=== PATIENT | female | born 1990 | race Caucasian/White ===

== ENCOUNTER 2021-04-22 11:50 | Inpatient (IN) | payer BC, SELFPAY ==
[2021-04-22] VITALS (80 sets, daily range): BP systolic 94–134; BP diastolic 47–106; PULSE 31–107; RESP 16; TEMP 37; O2SAT 71–100; BMI 25.7
--- NOTE | 2021-04-22 12:38 | WPDOBADMIT ---
Obstetrics - Admit Note Admission Note: record reviewed. Additions to the history and/or subsequent changes in the physical findings follow. 30 y/o at 39 1/7 weeks gestation here for induction of labor. GBS neg. AVSS NST reactive TOCO: irregular contractions ABD soft, nontender, gravid, vertex EXT nontender Cervix 50/-2. Vertex. AROM with clear fluid. A: IUP at term with favorable cervix, desiring induction of labor. P: Oxytocin. Anticipate .
[2021-04-22] MEDS: LACTATED RINGERS 1,000 ML 125 ML IV CONT (12:45)
[2021-04-22 13:01] LABS: Basophils Absolute Auto 0.1 K/mm3 (0.0-0.1); Basophils Percent Auto 0.5 % (0.2-1.2); Eosinophils Percent Auto 0.4 % (0-4.4); Hematocrit 32.1 % (37.0-47.0); Hemoglobin 10.5 g/dL (12.0-15.0); Immature Granulocyte Absolute 0.07 K/mm3 (0.00-0.031); Immature Granulocyte Percent A 0.7 % (0-0.5); Lymphocytes Absolute Auto 2.16 K/mm3 (0.9-3.2); Lymphocytes Percent Auto 21.7 % (18.3-44.2); Mean Corpuscular HGB Conc 32.7 g/dl (32-36); Mean Corpuscular Hemoglobin 28.5 pg (26-34); Mean Platelet Volume 10.2 fl (7.4-10.4); Monocytes Absolute Auto 0.7 K/mm3 (0.1-0.6); Neutrophils Percent Auto 69.7 % (45.5-73.1); Platelet Count Result 308 k/mm3 (150-375); Red Blood Count 3.69 M/mm3 (4.2-5.4); Red Cell Distribution Width 13.6 % (11.5-14.5)
[2021-04-22] MEDS: OXYTOCIN 30 UNITS/NS 500 ML 30 UNITS/500 ML BAG IV CONT (13:08)
--- NOTE | 2021-04-22 13:11 | LDADM ---
This patient, Blessing Burnette, was admitted to Labor/Delivery/Recovery 107 on 04/22/21 at 11:50. Plans for labor, pain management and were discussed with patient. Patient/family oriented to hospital policies and general routines including ID bracelet, bed and alarms, visiting hours, pain management, procedures, bathroom and other care routines, personal items, smoking policy, room service/diet and guest tray routines, security routines, and visiting hours. Patient/Family are encouraged to report perceived risks to care and to ask questions if they do not understand what they are told or what they should do. See OBIX for further documentation.
--- NOTE | 2021-04-22 14:12 | P.PNAN_ITS ---
Anes - Initial Pre Proc Eval Procedure: labor epidural Date/Time: 04/22/21 14:12 Surgeon: Constantino Mortensen MD Pre Op Diagnosis: labor pain Pre Op Diagnosis: iol Patient Data Age: 30 Gender: F Height: 1.68 m Weight: 72.5 kg Last Vital Signs Pulse 85 04/22/21 14:09 BP 116/80 04/22/21 14:09 Pulse Ox 100 04/22/21 14:10 Allergies Allergy/AdvReac Type Severity Reaction Status Date / Time No Known Allergies Allergy Verified 09/18/19 11:42 Home Medications Medication Instructions Recorded Confirmed Type PNV cmb#95-ferrous fumarate-FA 1 tablet PO DAILY 09/18/19 04/22/21 History [] Laboratory Tests 04/22/21 04/22/21 04/22/21 12:41 12:41 12:41 WBC 10.0 K/mm3 K/mm3 (4.5-10.0) RBC 3.69 M/mm3 L M/mm3 (4.2-5.4) Hgb 10.5 g/dL L g/dL (12.0-15.0) Hct 32.1 % L % (37.0-47.0) MCV 87.0 fl fl (80-100) MCH 28.5 pg pg (26-34) MCHC 32.7 g/dl g/dl (32-36) RDW 13.6 % % (11.5-14.5) Plt Count 308 k/mm3 k/mm3 (150-375) MPV 10.2 fl fl (7.4-10.4) Immature Gran % (Auto) 0.7 % H % (0-0.5) Neut % (Auto) 69.7 % % (45.5-73.1) Lymph % (Auto) 21.7 % % (18.3-44.2) [place] % (Auto) 7.0 % % (2.6-8.5) Eos % (Auto) 0.4 % % (0-4.4) Baso % (Auto) 0.5 % % (0.2-1.2) Lymph # (Auto) 2.16 K/mm3 K/mm3 (0.9-3.2) [place] # (Auto) 0.7 K/mm3 H K/mm3 (0.1-0.6) Eos # (Auto) 0.0 K/mm3 K/mm3 (0-0.3) Baso # (Auto) 0.1 K/mm3 K/mm3 (0.0-0.1) Abs Immat Gran (auto) 0.07 K/mm3 H K/mm3 (0.00-0.031) Absolute Neuts (auto) 7.0 K/mm3 H K/mm3 (1.3-6.7) Absolute Nucleated RBC 0.0 K/mm3 K/mm3 (0.0-0.012) Nucleated RBC % 0.0 % % (0.0-0.2) RPR Pending Blood Type A Positive Antibody Screen Negative Patient hx anesthesia problems: none Family hx anesthesia problems: none PMFSH Family History Family History Other Unknown family medical history Social History Social History Smoking status: Never smoker Second hand tobacco smoke exposure: No Substance use: never Gender identity (if verbalized by the patient): Female Spiritual care concerns: No Anes - Eval Final PreProcedure Day of Procedure 04/22/21 14:12 Patient weight: overweight ASA classification: II Anesthesia type and monitoring: regional epidural and standard monitoring Informed Consent: The patient's anesthetic plan and its attendant risks and benefits were discussed with the patient/family/POA. Questions were solicited and answers provided to the satisfaction of the patient/family/POA.
[2021-04-22] MEDS: OXYTOCIN 30 UNITS/NS 500 ML 30 UNITS/500 ML BAG 125 UNITS IV CONT (17:13)
[2021-04-22] MEDS: IBUPROFEN 600 MG TABLET PO (19:12)
[2021-04-22] MEDS: WITCH HAZEL 40 PADS 1 PAD TOPICAL (19:13)
[2021-04-22] MEDS: BENZOCAINE 20% AER SPR (*SP) 56 GM CAN 1 SPRAY TOPICAL (19:13)
--- NOTE | 2021-04-22 19:20 | PM.OBPRVD ---
OB - Delivery Note Procedure Delivery date: 04/22/21 Procedure: Induction of labor with Induction method: per pitocin protocol Delivery augmentation: rupture of membranes and pitocin Delivery monitor: external FHT and external uterine Route of delivery: Laceration Description: Perineal - 1st Degree Delivery repair: vicryl (3-0) Specimen: Yes (cord blood) Quantitative Blood Loss (ml): 120 Anesthesia type: Epidural Disposition: PACU Complications: None Narrative: 30 y/o at 39 1/7 weeks gestation who presented to the hospital for induction of labor. Oxytocin was administered intravenously. Amniotomy was performed with return of clear fluid. She received an epidural for pain control. Her labor progressed and her cervix dilated completely. She pushed with good effort and delivered the 's head to the perineum, followed by the body. The nose and mouth were bulb suctioned. After a delay, the cord was clamped and cut. The was handed off the field. Cord blood was collected. The placenta delivered spontaneously and was grossly normal in appearance. The usual 3 vessel cord was noted. A first degree midline perineal laceration was sustained. This was reapproximated using 3 0 Vicryl in the usual layered fashion. Excellent hemostasis resulted as did excellent reapproximation of the normal anatomy. Needle and instrument counts were correct. The patient was taken to recovery room in stable condition. The infant went to the nursery in stable condition. I was present and scrubbed for the entire delivery. Baby Date of : 04/22/21 Time of : 16:39 Weeks of gestation at delivery: 39 gender: Female Weight (pounds): 7 Weight (ounces): 6 presentation: vertex position: Left Occiput Anterior Placenta delivery description: Spontaneous and Normal Configuration cord vessel description: 3 Vessels and Delayed Cord Clamping score one minute: 9 score five minutes: 9
--- NOTE | 2021-04-22 19:32 | PM.OBDSVD ---
DS: Admitting Diagnosis Admitting Diagnosis Admitting Diagnosis: IUP at 39 1/7 weeks Favorable cervix DS: Discharge Diagnosis Discharge Diagnosis (1) (normal spontaneous vaginal delivery): Code(s): O80 - Encounter for full-term uncomplicated delivery Status: Acute (2) Term : Code(s): Z34.90 - Encounter for supervision of normal , unspecified, unspecified trimester Status: Acute OB - DS: Summary OB Procedures : None OB Procedures Intrapartum: Spontaneous Vag Delivery OB Procedures: : None DS: Data Data Completed and Pending Labs on day of discharge: Labs from last 24 hours 04/22/21 04/22/21 04/22/21 12:41 12:41 12:41 WBC 10.0 RBC 3.69 L Hgb 10.5 L Hct 32.1 L MCV 87.0 MCH 28.5 MCHC 32.7 RDW 13.6 Plt Count 308 MPV 10.2 Immature Gran % (Auto) 0.7 H Neut % (Auto) 69.7 Lymph % (Auto) 21.7 [place] % (Auto) 7.0 Eos % (Auto) 0.4 Baso % (Auto) 0.5 Lymph # (Auto) 2.16 [place] # (Auto) 0.7 H Eos # (Auto) 0.0 Baso # (Auto) 0.1 Abs Immat Gran (auto) 0.07 H Absolute Neuts (auto) 7.0 H Absolute Nucleated RBC 0.0 Nucleated RBC % 0.0 RPR Pending Blood Type A Positive Antibody Screen Negative Discharge Plan Discharge Attending physician on discharge: Constantino Mortensen Consulting providers: Brenton Whalen Discharging Clinician: Constantino Mortensen Patient Disposition: Home, Self-Care Activity: pelvic rest Diet: regular Discharge Instructions: Education: Mom and Baby Guide Given to: Mother Follow-Up: Call your delivering provider's office for an appointment to be seen in: 6 Weeks Mom and baby should come to the [facility] for the follow-up appointment. Appointment Date/Time: Sunday, April 25, 2021 at 10:00 a.m. What to expect at your follow-up visit: Blood Pressure Check Physical Assessment Call [phone] if you are unable to keep your appointment time. BREAST CARE: * Wear a snug supportive bra. * For engorgement discomfort: Breast Feeding: * Apply warm moist washcloths * Express milk as needed to relieve engorgement * Wear loose clothing * For sore nipples: * Identify correct latch-on * Apply warm moist washcloths before and after nursing * Air dry nipples after nursing * May apply Lansinoh cream to nipples EPISIOTOMY/PERINEAL CARE: * Until bleeding stops, use your frankie bottle after urinating * Change your pad frequently throughout the day * You may take sitz baths several times a day (fill your bathtub with warm water and soak for 20 minutes.) Do NOT bathe in the water * No tub baths until seen by your physician - You may shower ACTIVITY: * Rest as much as possible. * Do not exercise or lift anything heavier than your baby (such as laundry or other children.) * Avoid stairs or driving as much as possible. * Do not put anything into the vagina. No douching, tampons, or sexual activity until seen by physician. NOTIFY PHYSICIAN IF YOU HAVE ANY QUESTIONS OR IF ANY OF THE FOLLOWING SYMPTOMS OCCUR: * If your perineum becomes red, swollen, or more painful than what you have experienced in the hospital. * If your vaginal bleeding becomes foul smelling. * If your vaginal bleeding becomes more heavy than a period or if your bleeding changes from pink to bright red. However, you may pass an occasional walnut-sized clot once or twice for the first week . * If you experience a sharp, shooting pain in you calves. * If you discover a hard, reddened area on your breast or if you experience flu-like symptoms. DIET: * Eat regular, well-balanced meals. * Drink plenty of fluids daily. If , drink to thirst. Call or return if temperature above 100.4? F, increased abdominal pain, increased vaginal bleeding or any new
[2021-04-22] MEDS: ACETAMINOPHEN 325 MG TABLET 650 MG PO (21:45)
[2021-04-23] MEDS: IBUPROFEN 600 MG TABLET PO ×4 (01:00→23:58)
[2021-04-23] MEDS: ACETAMINOPHEN 325 MG TABLET 650 MG PO ×4 (03:56→23:59)
[2021-04-23 04:46] VITALS: BP 98/65; PULSE 79; RESP 16; TEMP 36.1; O2SAT 98
[2021-04-23 05:09] LABS: Hematocrit 27.6 % (37.0-47.0); Hemoglobin 9.2 g/dL (12.0-15.0)
[2021-04-23 08:17] LABS: Rapid Plasma Reagin Non-Reactive (NonReactive)
[2021-04-23 08:30] VITALS: BP 118/80; PULSE 79; RESP 16; TEMP 36.4; O2SAT 100
--- NOTE | 2021-04-23 09:00 | PC.NURSE ---
PT introductions made and plan of care discussed per post , pain management, breast feeding, daily care activities. PT received instructions and education via one to one discussion, mom baby guide, demonstration this shift. PT and spouse both recipients of instructions and no barriers to learning identified. PT verbalized understanding of such instructions.
[2021-04-23 10:00] VITALS: PULSE 79; RESP 16; O2SAT 100
[2021-04-23] MEDS: MULTIVIT/MIN/PREN/FOL AC/IRON TABLET 1 TAB PO (10:03)
[2021-04-23] MEDS: DOCUSATE SODIUM 100 MG CAPSULE PO ×2 (10:03→16:38)
[2021-04-23] MEDS: POLYSACCHARIDE IRON COMPLEX 150 MG CAPSULE PO ×2 (10:03→16:38)
[2021-04-23] MEDS: LANOLIN (LANSINOH) 7.5 GM CREAM 1 APPLIC TOPICAL (10:05)
--- NOTE | 2021-04-23 10:47 | WPDANLDPN2 ---
Anes-Prog Note L&D Date/Time: 04/23/21 10:47 Comfortable throughout: labor and delivery Neuraxial method: epidural Epidural/Spinal procedure site: clean & non-tender Neuro status: Neuro function grossly intact. Cardiovascular status: normal Respiratory status: normal Airway patency: baseline Mental status: baseline Post-Op hydration status: normal Vital Signs: Last Vital Signs Temp 36.1 C L 04/23/21 04:46 Pulse 79 04/23/21 04:46 Resp 16 04/23/21 04:46 BP 98/65 L 04/23/21 04:46 Pulse Ox 98 04/23/21 04:46 Pain score (VAS): 0 I/O: Intake & Output 04/22/21 04/23/21 04/23/21 23:59 07:59 15:59 Intake Total 500 Output Total 120 Balance 380 Post-procedural complaints: none Patient feedback: Patient satisfied with anesthetic care.
--- NOTE | 2021-04-23 11:45 | PC.NURSE ---
Upon entering mother has latched shallow to breast in cradle positioning, reporting slight tenderness. Suggested mother release latch and us cross cradle,reviewed positioning/alignment, holding breast U hold and guided asymmetrical latch on. Infant was able to latch correctly. Infant nursed eagerly, with steady draws and occasional swallowing noted. Reviewed signs of a correct latch, effective nursing and suck swallow ratio. was able to maintain latch without discomfort to mother. Reviewed feeding cues, frequencies, duration of feedings, feeding elimination flow sheet, and signs of adequate intake. Demonstrated stimulation techniques to wake for feeding. Instructed mother to call out for RN assistance if she is unable to latch for feeding or she has discomfort with nursing. Instructed feeding should be initiated three hours from start of last feeding or if feeding cues are noted before. Mother voiced understanding of information shared. Mother reports having mastitis and thrush with first child. Reviewed possible reasoning, mother states she may have had an oversupply. Discussed mother can call LC for any issues once discharged.
[2021-04-23 13:05] VITALS: BP 122/82; PULSE 69; RESP 16; TEMP 36.6; O2SAT 100
--- NOTE | 2021-04-23 13:30 | PM.OBPNVD ---
OB - PN: Subj Subjective Date/time seen: 04/23/21 18:46 Narrative: Pain OK. OB - PN: Obj Data Labs CBC & Chem 7: 04/23/21 03:52 Labs: Laboratory Results - last 24 hr 04/22/21 04/23/21 12:41 03:52 Hgb 9.2 L Hct 27.6 L RPR Non-reactive OB - PN A/P Plan Comments: A: PPD#1, doing well. P: Routine care. Exam Psych: Other: AVSS ABD soft, nontender, fundus firm EXT nontender
[2021-04-23] MEDS: WITCH HAZEL 40 PADS 1 PAD TOPICAL (16:37)
[2021-04-23 21:15] VITALS: BP 109/71; PULSE 68; RESP 16; TEMP 36.6; O2SAT 98
[2021-04-24 08:30] VITALS: BP 134/87; PULSE 74; RESP 16; TEMP 36.8; O2SAT 100
--- NOTE | 2021-04-24 09:45 | PC.NURSE ---
Consult with pt., mother states infant cluster fed during the night and give formula to calm and to rest. Reviewed cluster feedings are normal the first weeks of and should become less once her milk is well established. Assisted mother with her pump and correct flange. Observed mother is able to independently latch with appropriate positioning/alignment. She denies any nipple discomfort, is feeding as required and waking to feed if needed. Infant has had at least 8 effective feedings in the past 24 hours, and is currently meeting outcomes for weight, output, jaundice and feeding frequencies. Mother states she feels confident to continue effective at home. Reviewed transition to breast milk, signs of adequate intake, and engorgement/relief. Instructed to call ICP if intake/output less than required. Reviewed regular medications mother is taking. Information provided per [place]. Reviewed community resources on the [facility] website and in the Mom/Baby guide. Information on outpatient services provided. Mother has no further questions at this time.
[2021-04-24] MEDS: POLYSACCHARIDE IRON COMPLEX 150 MG CAPSULE PO (10:31)
[2021-04-24] MEDS: MULTIVIT/MIN/PREN/FOL AC/IRON TABLET 1 TAB PO (10:31)
[2021-04-24] MEDS: IBUPROFEN 600 MG TABLET PO (10:31)
[2021-04-24] MEDS: DOCUSATE SODIUM 100 MG CAPSULE PO (10:31)
[2021-04-24] MEDS: ACETAMINOPHEN 325 MG TABLET 650 MG PO (10:32)
--- NOTE | 2021-04-24 12:44 | PC.NURSE ---
Patient was given the opportunity to view the discharge video Mother & Baby Care, The First Two Weeks and to ask questions. Patient declined viewing the video and has been given the mother/baby guide for home reference.
[2021-04-25 10:51] VITALS: BP 123/89; PULSE 67; RESP 17; TEMP 36.7; O2SAT 100
== END 2021-04-24 14:44 | disposition home or self-care (01) | DRG 807 ==
LOC: ANHLDR 19:34 → ANHOB2 04-24 09:32 → ANHLDR 04-25 12:39 → ANHOB2 04-25 12:39
PROVIDERS: Admitting Provider Obstetrics & Gynecology; Visit Provider Student in an Organized Health Care Education/Training Program
DX: O70.0 First degree perineal laceration during delivery (principal); Z37.0 Single live birth; Z3A.39 39 weeks gestation of pregnancy
CPT/HCPCS: 36415; 85014; 85018; 85025; 86592; 86850; 86900; 86901; A9270; J2590; J2795; J7120

== ENCOUNTER 2024-01-24 02:00 | Inpatient (IN) | payer BC, SELFPAY ==
[2024-01-24] VITALS (42 sets, daily range): BP systolic 100–141; BP diastolic 70–104; PULSE 57–164; RESP 16–18; TEMP 36.6–37.6; O2SAT 78–100; BMI 27.6
[2024-01-24] MEDS: LACTATED RINGERS 1,000 ML 125 ML IV CONT ×2 (02:27→03:19)
[2024-01-24 02:44] LABS: Basophils Absolute Auto 0.1 K/mm3 (0.0-0.1); Basophils Percent Auto 0.7 % (0.2-1.2); Eosinophils Absolute Auto 0.1 K/mm3 (0-0.3); Eosinophils Percent Auto 0.7 % (0-4.4); Hematocrit 35.3 % (37.0-47.0); Hemoglobin 11.8 g/dL (12.0-15.0); Immature Granulocyte Absolute 0.12 K/mm3 (0.00-0.031); Lymphocytes Absolute Auto 3.18 K/mm3 (0.9-3.2); Lymphocytes Percent Auto 26.5 % (18.3-44.2); Mean Corpuscular HGB Conc 33.4 g/dl (32-36); Mean Corpuscular Hemoglobin 28.6 pg (26-34); Mean Corpuscular Volume 85.7 fl (80-100); Mean Platelet Volume 10.1 fl (7.4-10.4); Monocytes Absolute Auto 0.9 K/mm3 (0.1-0.6); Monocytes Percent Auto 7.5 % (2.6-8.5); Neutrophils Absolute Auto 7.6 K/mm3 (1.3-6.7); Neutrophils Percent Auto 63.6 % (45.5-73.1); Platelet Count Result 347 k/mm3 (150-375); Red Blood Count 4.12 M/mm3 (4.2-5.4); Red Cell Distribution Width 13.1 % (11.5-14.5)
--- NOTE | 2024-01-24 02:46 | LDADM ---
This patient, Blessing Burnette, was admitted to Labor/Delivery/Recovery 104 on 01/24/24 at 02:00. Plans for labor, pain management and were discussed with patient. Patient/family oriented to hospital policies and general routines including ID bracelet, bed and alarms, visiting hours, pain management, procedures, bathroom and other care routines, personal items, smoking policy, room service/diet and guest tray routines, infant security routines, and visiting hours. Patient/Family are encouraged to report perceived risks to care and to ask questions if they do not understand what they are told or what they should do. See OBIX for further documentation.
--- NOTE | 2024-01-24 03:05 | WPDANESEPP ---
Anes - Eval Pre Procedure Procedure: labor epidural Date/Time: 01/24/24 03:05 Pre Op Diagnosis: IOL Patient Data Age: 33 Gender: F Height: 1.68 m Weight: 77.5 kg Last Vital Signs Pulse 91 01/24/24 03:00 BP 132/96 H 01/24/24 03:00 O2 Del Method Room Air 01/24/24 02:46 Allergies Allergy/AdvReac Type Severity Reaction Status Date / Time No Known Allergies Allergy Verified 12/25/23 13:31 Home Medications Medication Instructions Recorded Confirmed Type vit no.95-ferrous 1 tablet PO DAILY 09/18/19 12/25/23 History fumarate 28 mg-folic acid 800 mcg tablet () Laboratory Tests 01/24/24 02:26 WBC 12.0 H K/mm3 (4.5-10.0) RBC 4.12 L M/mm3 (4.2-5.4) Hgb 11.8 L g/dL (12.0-15.0) Hct 35.3 L % (37.0-47.0) MCV 85.7 fl (80-100) MCH 28.6 pg (26-34) MCHC 33.4 g/dl (32-36) RDW 13.1 % (11.5-14.5) Plt Count 347 k/mm3 (150-375) MPV 10.1 fl (7.4-10.4) Immature Gran % (Auto) 1.0 H % (0-0.5) Neut % (Auto) 63.6 % (45.5-73.1) Lymph % (Auto) 26.5 % (18.3-44.2) [place] % (Auto) 7.5 % (2.6-8.5) Eos % (Auto) 0.7 % (0-4.4) Baso % (Auto) 0.7 % (0.2-1.2) Lymph # (Auto) 3.18 K/mm3 (0.9-3.2) [place] # (Auto) 0.9 H K/mm3 (0.1-0.6) Eos # (Auto) 0.1 K/mm3 (0-0.3) Baso # (Auto) 0.1 K/mm3 (0.0-0.1) Abs Immat Gran (auto) 0.12 H K/mm3 (0.00-0.031) Absolute Neuts (auto) 7.6 H K/mm3 (1.3-6.7) Absolute Nucleated RBC 0.000 K/mm3 (0.0-0.012) Nucleated RBC % 0.0 % (0.0-0.2) RPR Pending Patient hx anesthesia problems: none Family hx anesthesia problems: none Results Review: All pre-operative results and documents have been reviewed as part of the pre-operative evaluation. [facility] Family History Family History Other Unknown family medical history Social History Social History Smoking status: Never smoker Second hand tobacco smoke exposure: No Substance use: never Do You Feel Safe in your Home?: Yes Lack of Transportation: No Lack of Food: Never True Current Housing: I Have Housing Concerned About Future Housing: No Difficulty Paying Gas/Electric Bills: No Difficulty Paying for Meds: No Currently Unemployed: No Education: Master's Degree or Higher Difficulty w/ Childcare or Family Care: No Gender identity (if verbalized by the patient): Female Spiritual care concerns: No Exam Day of Procedure 01/24/24 03:05 Patient weight: overweight Heart: regular rate and rhythm Lungs: normal air movement Airway: Mallampati scale Neurological: alert and oriented
--- NOTE | 2024-01-24 03:38 | WPDOBADMIT ---
Obstetrics - Admit Note Admission Note: record reviewed. Additions to the history and/or subsequent changes in the physical findings follow. 33 y/o at 40 5/7 weeks here with contractions. Cervix 8 cm dilated on admission. Now comfortable with epidural. AVSS NST reactive TOCO: contractions every 2-4 min ABD soft, nontender, gravid, vertex EXT nontender Cervix 8/80/-2. AROM with clear fluid. Vertex. A: IUP at term with labor. P: Anticipate .
--- NOTE | 2024-01-24 04:42 | PM.OBPRVD ---
OB - Vaginal Delivery Note Procedure Delivery date: 01/24/24 Induction method: None Delivery augmentation: Rupture of Membranes Delivery monitor: External FHT and External Uterine Route of delivery: Episiotomy description: None Laceration Description: Perineal - 1st Degree Delivery repair: vicryl (3-0) Specimen: Yes (cord blood) Quantitative Blood Loss (ml): 240 Anesthesia type: Epidural Disposition: PACU Complications: None Narrative: 33 y/o at 40 5/7 weeks gestation who presented to the hospital with contractions. Labor was diagnosed. Amniotomy was performed with return of clear fluid. She received an epidural for pain control. Her labor progressed and her cervix dilated completely. She pushed with good effort and delivered the 's head to the perineum, followed by the body. The nose and mouth were bulb suctioned. After a delay, the cord was clamped and cut. The infant was handed off the field. Cord blood was collected. The placenta delivered spontaneously and was grossly normal in appearance. The usual 3 vessel cord was noted. A first degree midline perineal laceration was sustained. This was reapproximated using a single figure of eight suture of 3-0 vicryl. Excellent hemostasis resulted as did excellent reapproximation of the normal anatomy. Needle and instrument counts were correct. The patient was taken to recovery room in stable condition. The infant went to the nursery in stable condition. I was present and scrubbed for the entire delivery. [place] Baby Date of : 01/24/24 Time of : 04:26 Weeks of gestation at delivery: 40 Infant gender: Female Weight (pounds): 7 Weight (ounces): 13 presentation: vertex position: Right Occiput Anterior Placenta delivery description: Spontaneous and Normal Configuration Cord Vessel Description: 3 Vessels and Delayed Cord Clamping score one minute: 8 score five minutes: 9
--- NOTE | 2024-01-24 04:44 | PM.OBDSVD ---
DS: Admitting Diagnosis Discharge Date 01/25/24 Admitting Diagnosis IUP at 40 5/7 weeks Labor DS: Discharge Diagnosis Discharge Diagnosis (1) (normal spontaneous vaginal delivery): Code(s): O80 - Encounter for full-term uncomplicated delivery Status: Acute OB - DS: Summary OB Procedures : None OB Procedures Intrapartum: Spontaneous Vag Delivery OB Procedures: : None Peripartum Data Laceration Description: Perineal - 1st Degree Episiotomy description: None Time Spent with Patient Time attestation: Total time spent providing and/or coordinating discharge services: DS: Data Data Completed and Pending Labs on day of discharge: Labs from last 24 hours 01/24/24 02:26 WBC 12.0 H RBC 4.12 L Hgb 11.8 L Hct 35.3 L MCV 85.7 MCH 28.6 MCHC 33.4 RDW 13.1 Plt Count 347 MPV 10.1 Immature Gran % (Auto) 1.0 H Neut % (Auto) 63.6 Lymph % (Auto) 26.5 [place] % (Auto) 7.5 Eos % (Auto) 0.7 Baso % (Auto) 0.7 Lymph # (Auto) 3.18 [place] # (Auto) 0.9 H Eos # (Auto) 0.1 Baso # (Auto) 0.1 Abs Immat Gran (auto) 0.12 H Absolute Neuts (auto) 7.6 H Absolute Nucleated RBC 0.000 Nucleated RBC % 0.0 RPR Pending Blood Type A Positive Antibody Screen Negative Discharge Plan Discharge Attending physician on discharge: Constantino Mortensen Discharging Clinician: Constantino Mortensen Patient Disposition: Home, Self-Care Activity: pelvic rest Diet: regular Discharge Instructions: Call or return if temperature above 100.4? F, increased abdominal pain, increased vaginal bleeding or any new problems. Stand Alone Forms: General Discharge Information Follow-up/Referrals: Constantino Mortensen MD [Physician] - 6 Weeks Discharge Medications: Continued PNV cmb#95-ferrous fumarate-FA [] 28 mg iron- 800 mcg Tablet 1 tablet PO DAILY Date of admission: 01/24/24 02:00 Primary Care Provider: PHYSICIAN,IMPLEMENTATION DIRECTOR Admitting Provider: Constantino Mortensen Attending physician on admission: Constantino Mortensen Condition: Stable
[2024-01-24] MEDS: OXYTOCIN 30 UNITS/NS 500 ML 30 UNITS/500 ML BAG 999 UNITS IV CONT (05:05)
[2024-01-24] MEDS: OXYTOCIN 30 UNITS/NS 500 ML 30 UNITS/500 ML BAG 125 UNITS IV CONT (05:05)
[2024-01-24] MEDS: IBUPROFEN 600 MG TABLET PO ×3 (07:10→21:04)
--- NOTE | 2024-01-24 09:15 | OBPPTRN ---
Patient transferred to post room #284 via wheelchair. Support person present. Oriented to unit, room, information board, rooming in, admission packet and security measures. Patient verbalizes understanding.
[2024-01-24] MEDS: DOCUSATE SODIUM 100 MG CAPSULE PO ×2 (09:37→17:44)
[2024-01-24] MEDS: MULTIVIT/MIN/PREN/FOL AC/IRON TABLET 1 TAB PO (09:37)
[2024-01-24] MEDS: ACETAMINOPHEN 325 MG TABLET 650 MG PO ×2 (09:37→15:25)
[2024-01-24 16:04] LABS: Rapid Plasma Reagin Non-Reactive (NonReactive)
[2024-01-25 00:01] VITALS: BP 100/66; PULSE 75; RESP 18; TEMP 36.4; O2SAT 99
[2024-01-25] MEDS: IBUPROFEN 600 MG TABLET PO ×3 (04:54→19:33)
[2024-01-25 04:56] VITALS: BP 111/76; PULSE 99; RESP 18; TEMP 36.8; O2SAT 98
[2024-01-25 05:49] LABS: Hematocrit 32.7 % (37.0-47.0); Hemoglobin 10.5 g/dL (12.0-15.0)
[2024-01-25 08:10] VITALS: BP 114/75; PULSE 82; RESP 18; TEMP 36.2; O2SAT 98
[2024-01-25] MEDS: MULTIVIT/MIN/PREN/FOL AC/IRON TABLET 1 TAB PO (08:34)
[2024-01-25] MEDS: DOCUSATE SODIUM 100 MG CAPSULE PO ×2 (08:34→16:35)
[2024-01-25] MEDS: ACETAMINOPHEN 325 MG TABLET 650 MG PO ×2 (08:34→16:34)
--- NOTE | 2024-01-25 08:43 | WPDANLDPN2 ---
Anes-Prog Note L&D Date/Time: 01/25/24 08:43 Comfortable throughout: labor and delivery Neuraxial method: epidural Epidural/Spinal procedure site: clean & non-tender Neuro status: Neuro function grossly intact. Cardiovascular status: normal Respiratory status: normal Airway patency: baseline Mental status: baseline Post-Op hydration status: normal Vital Signs: Last Vital Signs Temp 36.2 C L 01/25/24 08:10 Pulse 82 01/25/24 08:10 Resp 18 01/25/24 08:10 BP 114/75 01/25/24 08:10 Pulse Ox 98 01/25/24 08:10 O2 Del Method Room Air 01/24/24 20:14 Pain score (VAS): 2/10 Post-procedural complaints: none Patient feedback: Patient satisfied with anesthetic care.
--- NOTE | 2024-01-25 13:16 | PM.OBPNVD ---
OB - PN: Subj Subjective Date/time seen: 01/25/24 13:16 Narrative: Pain OK. Would like to go home. OB - PN: Obj Data Labs 01/25/24 04:48 Labs: Laboratory Results - last 24 hr 01/24/24 01/25/24 02:26 04:48 Hgb 10.5 L Hct 32.7 L RPR Non-reactive OB - PN A/P Plan Comments: A: PPD#1, doing well. P: Home to f/u 6 weeks. Exam Psych: Other: AVSS ABD soft, nontender, fundus firm EXT nontender
--- NOTE | 2024-01-25 13:24 | PC.NURSE ---
[id number] Introductions were made, then consulted with patient to assess needs related to . Encouraged understanding of the benefits of skin to skin and mother is demonstrating with infant upright on her chest/breast. Mother shared that most of the feedings have been without pain with exception to one and she has noticed her nipple is misshaped after . Discussed and encouraged stimulating with massage touch, changing positions to encourage wakefulness, changing the diaper, how to watch for early feeding cues, responsive feeding, feeding on demand (aiming for 8-12 times in 24 hours, about every 2-3 hours), milk production, hand expression, building/maintaining a milk supply, duration of feeding, signs of adequate intake/output and how to record on the feeding sheet. Mother works well with her infant with encouragement and education. Reviewed positioning and ear, shoulder, hip alignment, supporting the breast to facilitate a deep latch, asymmetrical latch (off-center), leading with the chin with a big, open, wide gape and body close to mother. Infant latched optimally to the right breast in cross cradle position. Education given to the mother of how to visualize the suckling (with good rocking jaw motion), swallows (dropping of the lower jaw) and how to listen for drinking at the breast (the ka sound) which demonstrates. Infant was able to maintain latch without pain to mother. Reviewed comfort measures of healing with a warm, wet washcloth to rinse breast, then leave open to air-dry, good handwashing when or touching the breast/nipples to prevent infection. Encouraged in a different position if she notices her nipple misshaped, detach infant if there's pain, calling for support. Mother voiced understanding of skin to skin, stimulating with massage touch, responsive feedings, hand expressed colostrum, talking to to encourage if it has been 2 -2.5 hours since the start of the last , to call if infant does not latch, or if there is discomfort with . Resources used for education were facilitated with the visual educational handouts/ tool/mom and baby guide. Inpatient/outpatient resources provided with business card, feeding sheet, name written on the communication board, and the mom/baby guide. Parents voiced understanding of information, demonstrated learning and will call if there is a request for assistance. Reported to the Primary RN.
--- NOTE | 2024-01-25 13:33 | PC.NURSE ---
[id number] Mother discussed earlier questions regarding pumping in the future and planning a few weeks out for going back to work. Instructions given on cleaning, care, usage, that there should be no pain, pumping schedule for milk production, collection, and storage of human milk. Discussed how to find the correct placement, flange size, to pump for comfort and protecting her milk supply when away from her infant. Mother voiced understanding of the education shared along with mom/baby guide and the pump measurement, flange fit handout for additional resource information.
[2024-01-25 19:36] VITALS: BP 112/76; PULSE 86; RESP 16; TEMP 37.1
[2024-01-25] MEDS: HYDROcodone/acetaminophen (*CRX) 5-325 MG TABLET 1 TAB PO ×2 (19:56→19:58)
[2024-01-25 23:58] VITALS: BP 102/68; PULSE 97; RESP 16; TEMP 37.2
[2024-01-26] MEDS: DOCUSATE SODIUM 100 MG CAPSULE PO (07:22)
[2024-01-26] MEDS: ACETAMINOPHEN 325 MG TABLET 650 MG PO (07:23)
[2024-01-26] MEDS: MULTIVIT/MIN/PREN/FOL AC/IRON TABLET 1 TAB PO (07:23)
[2024-01-26] MEDS: IBUPROFEN 600 MG TABLET PO (07:23)
[2024-01-26 07:45] VITALS: BP 109/73; PULSE 72; RESP 16; TEMP 36.7; O2SAT 98
--- NOTE | 2024-01-26 08:33 | PM.OBPNVD ---
OB - PN: Subj Subjective Date/time seen: 01/26/24 08:33 Narrative: Pain OK. Would like to go home. OB - PN: Obj Data Labs 01/25/24 04:48 OB - PN A/P Plan Comments: A: PPD#2, doing well. P: Home to f/u 6 weeks. Time Spent With Patient Time: Total time spent is greater than 50% in coordination of care (as documented) at patient's floor/unit and/or counseling patient: Exam Psych: Other: AVSS ABD soft, nontender, fundus firm EXT nontender
--- NOTE | 2024-01-26 11:21 | PC.NURSE ---
On 01/26/24, the student, Mandy Cuevas, provided care and completed [facility] documentation on this patient. I have reviewed the student's documentation and agree with the findings.
--- NOTE | 2024-01-26 16:27 | PC.NURSE ---
[id number] Consulted with mother concerning needs and she shared her ability to independently latch infant optimally without pain with effectively latched to the right breast. Mother is feeding appropriately for growth of and understands stimulating to eat if needed. has had appropriate feedings in the last 24 hours meets the outcomes for weight, output, blood sugar and jaundice at this time. Reinforced understanding of milk production, transition of milk, signs of adequate intake, transition of stool, prevention/relief of engorgement, plugged ducts, mastitis, responsive watching for feeding cues, the different methods of stimulating infant to breastfeed 1-3 hours after the start of the last feeding, community resources, and when to call a provider using the resource of the feeding sheet along with the mom and baby guide. Mother voiced understanding of the information shared, is confident to continue effectively her at home, when to call for assistance, denies any additional assistance or education at this time. Reported to the Primary RN.
== END 2024-01-26 13:05 | disposition home or self-care (01) | DRG 807 ==
LOC: ANHLDR 04:45 → ANHOB2 09:21
PROVIDERS: Admitting Provider Obstetrics & Gynecology; Visit Provider Obstetrics & Gynecology
DX: O70.0 First degree perineal laceration during delivery (principal); Z37.0 Single live birth; Z3A.40 40 weeks gestation of pregnancy
CPT/HCPCS: 36415; 85014; 85018; 85025; 86592; 86850; 86900; 86901; A9270; J2590; J2795; J7120